=== PATIENT | female | born 1955 | race Two or more races ===

== ENCOUNTER 2020-08-02 11:30 | Inpatient (IN) | payer OTHER ==
[~2020-08-02] VITALS: Ht 157.5 cm; Wt 66.7 kg
[2020-08-05] MEDS ORDERED: GLIPIZIDE XL5 MG PO (11:38)
[2020-08-05] MEDS ORDERED: ATORVASTATIN CA40 MG PO (11:38)
[2020-08-05] MEDS ORDERED: ENALAPRIL MALEAT5 MG PO (11:39)
[2020-08-05] MEDS ORDERED: NOXIFOL-D32500 UNIT PO (11:39)
[2020-08-05] MEDS ORDERED: HYDRODIURIL12.5 MG PO (11:39)
== END 2020-08-13 10:06 | disposition home or self-care (01) | DRG 334 ==
LOC: O/R 08-09 06:00 → SURH 08-09 09:00
PROVIDERS: ADMIT Colon & Rectal Surgery; ATTEND Colon & Rectal Surgery
PROC: 07BC4ZX Excision of Pelvis Lymphatic, Percutaneous Endoscopic Approach, Diagnostic (ICD-10-PCS; 2020-08-09)
PROC: 0DBP4ZZ Excision of Rectum, Percutaneous Endoscopic Approach (ICD-10-PCS; principal; 2020-08-09 09:00)
DX: D12.1 Benign neoplasm of appendix (principal); I10 Essential (primary) hypertension; D64.9 Anemia, unspecified